=== PATIENT | female | born 1960 | race African-American/Black ===

== ENCOUNTER 2023-12-31 16:55 | Emergency (ER) | payer OTHER ==
[~2023-12-31] VITALS: Ht 175.3 cm; Wt 161.0 kg
[2023-12-31 17:02] VITALS: BP 152/81; PULSE 95; RESP 16; TEMP 98.7; O2SAT 95
[2023-12-31 19:50] VITALS: O2SAT 100
[2023-12-31 19:52] LABS: APPEARANCE,URINE CLEAR (CLEAR); BILIRUBIN,URINE NEGATIVE (NEGATIVE); BLOOD, URINE NEGATIVE (NEGATIVE); COLOR,URINE YELLOW (YELLOW); LEUKOCYTE ESTERASE ,URINE NEGATIVE (NEGATIVE); NITRITE, URINE NEGATIVE (NEGATIVE); PROTEIN,URINE 1+ (NEGATIVE); UGLUCOSE 3+ (NEGATIVE); UROBILINOGEN,URINE 0.2 EU/dL (0.2 - 1)
[2023-12-31] MEDS: ACETAMINOPHEN EXTRA STRENGTH 500 MG TAB PO ONE (20:27)
[2023-12-31] MEDS ORDERED: CLOT1CRE82 TP (21:31)
[2023-12-31] MEDS ORDERED: ACET-10509 PO (21:31)
[2023-12-31] MEDS ORDERED: LID5T TP (21:31)
[2023-12-31] MEDS ORDERED: IBUP-2213 PO (21:31)
[2024-01-01 07:13] VITALS: O2SAT 100
[2024-01-01] MEDS ORDERED: ACETAMINOPHEN EXTRA STRENGTH 500 MG TAB ONE (09:01)
[2024-01-01] MEDS: ACETAMINOPHEN EXTRA STRENGTH 500 MG TAB PO ONE (09:08)
[2024-01-01] MEDS: hydrALAZINE 20 MG/ML VIAL IVP ONE (09:12)
[2024-01-01] MEDS: amLODIPine 5 MG TAB PO ONE (09:18)
[2024-01-01 09:40] LABS: BASOPHILS # (AUTO) 0.1 K/uL (0.00-0.22); EOSINOPHILS # (AUTO) 0.2 K/uL (0-0.4); EOSINOPHILS % (AUTO) 2.6 % (0.0-4.0); HEMATOCRIT 37.4 % (36-48); HEMOGLOBIN 12.6 g/dL (12.0-16.0); LYMPHOCYTES # (AUTO) 2.9 K/uL (2.5-16.5); MEAN CORPUSCULAR HEMOGLOBIN 31 pg (27-31); MEAN CORPUSCULAR HGB CONC 34 g/dL (33-37); MONOCYTES # (AUTO) 0.5 K/uL (0.8-1.0); MONOCYTES % (AUTO) 6.3 % (1.7-9.3); NEUTROPHILS # (AUTO) 3.8 K/uL (1.8-7.7); NEUTROPHILS % (AUTO) 51.1 % (42.2-75.2); PLATELET COUNT (AUTO) 286 K/uL (140-450); RED BLOOD CELL COUNT(AUTO) 4.03 MIL/uL (4.20-5.40); RED CELL DISTRIBUTION WIDTH 13.3 % (11.6-13.7); WHITE BLOOD COUNT (AUTO) 7.5 K/uL (4.8-10.8)
[2024-01-01 10:11] LABS: ANION GAP 12.8 (8-16); CALCIUM 8.8 mg/dL (8.5-10.1); CARBON DIOXIDE 23.6 mmol/L (21-32); CREATININE 1.3 mg/dL (0.6-1.3); POTASSIUM 4.4 mmol/L (3.5-5.1)
[2024-01-01 10:35] LABS: TOTAL BILIRUBIN 0.4 mg/dL (0.0-1.0); TOTAL PROTEIN, SERUM 8.1 g/dL (6.4-8.2)
[2024-01-01 11:09] LABS: ALBUMIN 3.4 g/dL (3.4-5.0); BILIRUBIN,DIRECT 0.1 mg/dL (0.0-0.3)
[2024-01-01] MEDS ORDERED: CLONIDINE HYDROCHLORIDE 0.1 MG TAB ONE ×2 (12:26→12:28)
[2024-01-01] MEDS: CLONIDINE HYDROCHLORIDE 0.1 MG TAB PO ONE (12:29)
[2024-01-01 17:00] VITALS: BP 137/81; PULSE 74; RESP 16; TEMP 98; O2SAT 97
== END 2024-01-01 19:26 ==
LOC: MED 16:55
DX: S09.90XA Unspecified injury of head, initial encounter (principal); E11.9 Type 2 diabetes mellitus without complications; I10 Essential (primary) hypertension; B37.9 Candidiasis, unspecified; Z79.1 Long term (current) use of non-steroidal anti-inflammatories (NSAID); Z79.899 Other long term (current) drug therapy; W01.0XXA Fall on same level from slipping, tripping and stumbling without subsequent striking against object, initial encounter; Y93.89 Activity, other specified; Y92.89 Other specified places as the place of occurrence of the external cause; Y99.8 Other external cause status
CPT/HCPCS: 36415; 70450; 72125; 73130; 80048; 80076; 81003; 85025; 99284; 99285